=== PATIENT | female | born 1960 | race Caucasian/White ===

== ENCOUNTER → 2019-10-24 | Outpatient (CLI) | payer OTHER ==
[~2019-10-24] MED LIST: ALBUTEROL2.5 MG/0.1 INH; FISH OIL 1,0001 EAC5 PO; GLUMETZA500 PO; MULTIVITAMINS PO; SINGULAIR 10 MG10 M1 PO; SYNTHROID137 MCG PO; [UNRECOGNIZED DRUG - OTHER] PO
== END ==
LOC: SJCVCIMAG 10:06 → CAT 10:06 → SJCVCIMAG 16:10
DX: E08.00 Diabetes mellitus due to underlying condition with hyperosmolarity without nonketotic hyperglycemic-hyperosmolar coma (NKHHC) (principal); Z13.6 Encounter for screening for cardiovascular disorders; E78.1 Pure hyperglyceridemia; M79.662 Pain in left lower leg; M79.89 Other specified soft tissue disorders; E78.00 Pure hypercholesterolemia, unspecified; I25.10 Atherosclerotic heart disease of native coronary artery without angina pectoris

== ENCOUNTER → 2020-09-23 | Outpatient (CLI) | payer OTHER | LOC: SJCVCIMAG 09-09 09:45 | PROVIDERS: ATTEND Internal Medicine Cardiovascular Disease | DX: R06.00 Dyspnea, unspecified (principal); I10 Essential (primary) hypertension; E78.1 Pure hyperglyceridemia; E78.5 Hyperlipidemia, unspecified ==